=== PATIENT | female | born 1975 | race Two or more races ===

== ENCOUNTER → 2024-07-25 | Outpatient (CLI) | payer MEDICAID, SELFPAY ==
--- NOTE | 2024-07-25 09:15 | XR_ITS ---
Examination: Screening digital mammography, bilateral Computer aided detection 3-D breast Tomosynthesis, bilateral Date and time of exam: July 25, 2024 at 0919 hours Compared to mammograms dating to April 29, 2020 Indication: Screening Technique: Nonmagnified MLO, CC views of the breasts to been obtained, reconstructed from 3-D Tomosynthesis images. R2 computer aided detection program utilized for evaluation of suspicious masses and/or abnormal calcifications. 3-D Tomosynthesis images obtained. Findings: Scattered areas of fibroglandular density Stable scar formation left breast consistent with history left breast cancer 2017 No interval suspicious masses Impression: BI-RADS category II: Benign Findings. Recommend 1 year follow-up mammogram.
== END | disposition home or self-care (01) ==
LOC: CDIM 09:05
PROVIDERS: Referring Provider Internal Medicine Hematology & Oncology; Visit Provider Internal Medicine Hematology & Oncology
DX: Z12.31 Encounter for screening mammogram for malignant neoplasm of breast (principal); R92.323 Mammographic fibroglandular density, bilateral breasts; C50.412 Malignant neoplasm of upper-outer quadrant of left female breast
CPT/HCPCS: 77063; 77067

== ENCOUNTER 2024-08-07 14:20 | Emergency (ER) | payer MEDICAID, SELFPAY ==
[2024-08-07 14:38] VITALS: BP 120/69; PULSE 95; RESP 16; TEMP 36.9; O2SAT 97; BMI 41.5
--- NOTE | 2024-08-07 14:40 | XR_ITS ---
Examination: Abdomen sonogram, Limited Date and time of exam: August 07, 2024 1507 hours INDICATIONS: Jaundice and elevated liver function tests on laboratory examination beginning 3 weeks ago Technique: Real-time saez scale transabdominal sonographic images of the upper abdomen obtained. Findings: Absent gallbladder Common bile duct 0.5 cm no definite stones Pancreatic head 3.4 cm with findings suspicious for free fluid Liver 17.8 cm lobular contour fatty infiltration Hepatopedal portal venous flow is noted as well as patent IVC IMPRESSION: Absent gallbladder No definite common bile duct stones, given the patient's presentation, consider MRCP follow-up
--- NOTE | 2024-08-07 14:40 | XR_ITS ---
Examination: CT abdomen and pelvis without contrast. Coronal 3-D reconstructions. Sagittal 2-D reconstructions. Date and time of exam:August 07, 2024 1447 hours INDICATIONS: Onset jaundice today CTDI: vol (mGy): 10.9 DLP: (mGycm): 589 Technique: Axial images of the abdomen have been obtained, 3 mm slice thickness Intravenous contrast material has not been administered. Low dose protocols were performed. One or more of the following dose reduction techniques were used; automated exposure control, adjustment of the mA and/or KV according to patient size, use of iterative reconstruction technique. Findings: Hepatomegaly 18 cm with diffuse fatty infiltration throughout the liver No intrahepatic biliary tract dilatation Splenomegaly 14.7 cm Absent gallbladder No extra hepatic biliary tract dilatation No pancreatic mass No renal or ureteral calculi, no hydronephrosis Aorta normal size Anasarca No bowel obstruction Normal appendix Mild ascites Colonic diverticulosis No pelvic mass Prominent osteopenia Urinary bladder intact IMPRESSION: Significant hepatomegaly with diffuse severe fatty infiltration throughout the liver No focal liver lesions, no intrahepatic biliary tract dilatation Significant splenomegaly No extrahepatic biliary tract dilatation Mild ascites Anasarca
--- NOTE | 2024-08-07 14:41 | PD.EDRME ---
Rapid Medical Screening Exam RME Arrival date/time: 08/07/24 14:20 48-year-old female presents emergency department complaints of yellowing of the eyes and generalized fatigue Chief Complaint: Recheck/Abnormal Lab/Rx
[2024-08-07 15:15] LABS: Basophils # (Auto) 0.1 Thou/mm3 (0.0-0.2); Basophils % (Auto) 1 % (0-2.5); Eosinophils # (Auto) 0.2 Thou/mm3 (0.0-0.5); Eosinophils % (Auto) 2 % (0-10); Hematocrit 34.6 % (36.0-46.0); Hemoglobin 11.8 g/dL (12.0-16.0); Immature Granulocytes % (Auto) 1 % (0-0); Immature Granulocytes Auto 0.06 Thou/mm3 (0.00-0.00); Lymphocytes # (Auto) 1.4 Thou/mm3 (1.0-4.8); Lymphocytes % (Auto) 12 % (10-50); Mean Corpuscular HGB Conc 34.1 g/dl (31.0-37.0); Mean Corpuscular Hemoglobin 33.8 pg (25.0-35.0); Mean Corpuscular Volume 99 fL (80-100); Monocytes # (Auto) 1.1 Thou/mm3 (0.0-0.8); Monocytes % (Auto) 9 % (0-12); Neutrophils # (Auto) 9.3 Thou/mm3 (1.8-7.7); Neutrophils % (Auto) 77 % (37-80); Nucleated Red Blood Cell % 0 /100 WBC (0); Platelet Count 121 Thou/mm3 (140-440); RDW Standard Deviation 56.5 fL (36.4-46.3); Red Blood Count 3.49 Miln/mm3 (4.00-5.20); White Blood Count 12.1 Thou/mm3 (3.6-11.0)
[2024-08-07 15:30] LABS: INR 1.4 (0.9-1.3); Partial Thromboplastin Time 33.9 Seconds (22.0-36.0); Prothrombin Time 15.1 Seconds (9.0-12.2)
[2024-08-07 15:34] LABS: Ammonia 20 uMol/L (11-32)
[2024-08-07 16:02] LABS: Alanine Aminotransferase 69 U/L (10-49); Albumin, Serum 3.9 gm/dL (3.5-5.0); Albumin/Globulin Ratio 1.3 (1.2-2.2); Alkaline Phosphatase 232 U/L (46-116); Anion Gap 9 (7-16); Aspartate Amino Transferase 115 U/L (0-34); BUN/Creatinine Ratio 20 Ratio (12-20); Blood Urea Nitrogen 10 mg/dL (9-23); Calcium 9.6 mg/dL (8.3-10.6); Calcium (Corrected) 9.7 mg/dL (8.5-10.1); Carbon Dioxide 25.4 mMol/L (20.0-31.0); Chloride 102 mMol/L (98-107); Creatinine (Component) 0.5 mg/dL (0.6-1.3); Estimated Creatinine Clearance 123.2 mL/min (>60); Globulin 3.1 gm/dL (2.3-3.5); Glucose 110 mg/dL (74-106); Lipase 25 U/L (12-53); Osmolality,Calculated 271 (275-295); Potassium 3.1 mMol/L (3.4-5.1); Sodium 136 mMol/L (136-145); eGFR > 60 See Note
[2024-08-07 16:04] LABS: Bilirubin,Total 18.2 mg/dL (0.3-1.2)
[2024-08-07 16:23] LABS: Hepatitis A Antibody IgM Non Reactive (Non React); Hepatitis B Core Antibody IgM Non Reactive (Non React); Hepatitis B Surface Antigen Non Reactive (Non React); Hepatitis C Antibody Non Reactive (Non React)
[2024-08-07 18:51] VITALS: BP 119/65; PULSE 86; RESP 16; O2SAT 99
[2024-08-07 18:54] LABS: Collection Type, Urine Clean Catch
[2024-08-07 19:12] LABS: Bilirubin,Urine 4+ (Negative); Blood,Urine 1+ (Negative); Clarity,Urine Turbid (Clear/Hazy); Color,Urine Drk-Orange (Lt Yel-Yel); Culture Indicated,Urine Contaminated; Glucose, Urine Negative (Negative); Ketones,Urine Negative (Negative); Leukocyte Esterase,Urine Positive (Negative); Nitrite,Urine Negative (Negative); Protein,Urine 1+ (Neg - Trace); RBC,Urine 15 /hpf (0-3); Specific Gravity,Urine 1.027 (1.001-1.035); Squamous Epithelial Cell,Urine 49 /hpf (0-5); Urobilinogen,Urine OVER mg/dL (0.0-1.0); WBC,Urine 19 /hpf (0-5)
--- NOTE | 2024-08-07 20:01 | EDNOTE_ITS ---
ED Recheck Abnl Lab Rx-RME/HPI General Chief Complaint: Recheck/Abnormal Lab/Rx Stated Complaint: JAUNDICE; PCP SENT FOR ABNORMAL LABS; WEAK, BLURRY Time Seen by Provider: 08/07/24 15:16 Source: patient Arrival date/time: 08/07/24 14:20 Mode of arrival: ambulatory Limitations: no limitations RME / HPI RME / HPI narrative: 08/07/24 14:20 48-year-old female presents emergency department complaints of yellowing of the eyes and generalized fatigue Dr. [facility] Main ED Evaluation: 48-year-old female with history of chronic alcohol use who presents to the emergency department sent by her PCP due to presentation of jaundice. Patient states she had seen her provider on 07/24/24 and she had ordered labs. Today, she received a phone call to obtain diagnostic imaging for an ultrasound when she was redirected here for further evaluation. She reports abdominal distention but no pain. Denies any other medical complaints. Patient gives history she started drinking in 2006. She admits to drinking 18-24 pk daily until 2 years ago when she started consuming 3 margaritas about 4x/week to help her sleep. She reports she had her last alcoholic beverage on 07/29/24. Related Data Previous Rx's ?Medication ?Instructions ?Recorded hydrocodone 10 mg-acetaminophen 1 tab PO Q6H PRN pain #20 tabs 01/12/20 325 mg tablet ([place]) famotidine 40 mg tablet (Pepcid) 40 mg PO BID #14 tabs 09/20/23 Allergies Allergy/AdvReac Type Severity Reaction Status Date / Time No Known Allergies Allergy Verified 08/07/24 14:23 Review of Systems Review of Systems Systems Reviewed: All systems reviewed, normal except as documented Past Medical History Past Medical History NEUROLOGIC: Negative Neurological Disorders or Seizures CARDIAC: Negative Cardiac Disorders, Congestive Heart Failure, Edema, Cellulitis or Varicose Veins RESPIRATORY: Negative Chronic Obstructive Pulmonary Disease (COPD), Pneumonia, Tuberculosis or Sleep Apnea GASTROINTESTINAL: Positive Gastrointestinal Disorders and Obesity; Negative Hepatitis or Gall Bladder Disease GENITOURINARY: Negative Genitourinary Disorders or Renal Disease REPRODUCTIVE: Positive Breast Cancer and Previous Pregnancies MUSCULOSKELETAL: Negative Musculoskeletal Disorders ENDOCRINE: Negative Endocrine Disorders, Diabetes Mellitus Type 1 or Diabetes Mellitus Type 2 HEMATOLOGIC: Positive Blood Disorders; Negative Clotting Problems OTHER HISTORY: Positive Chemotherapy, Radiation Therapy, Chicken Pox, Cancer and Breast Cancer; Negative Hospitalization, Autoimmune Disease, Shingles, Falls, Blood Transfusions, Anesthesia Reactions, MRSA, Measles or Mumps Family History FAMILY HISTORY: Positive Family Psychiatric Problems, Family Cardiac Disorders and Family Surgery; Negative Family Respiratory Disorders, Family Gastrointestinal Problems, Family Cancer or Family Anesthesia Reaction Surgical History SURGICAL: Positive Lumpectomy, Hysterectomy, Tubal Ligation and Section; Negative Cardiac Surgery, Pacemaker, Endocrine Surgery, Ear Surgery or Joint Replacement Social History SMOKING STATUS: Never smoker ED Exam Narrative Physical exam: GENERAL APPEARANCE: alert and oriented x 4, well-developed, well-nourished, no acute distress, jaundiced VITALS: All vitals were reviewed and the pulse ox is 99% on room air, which is normal according to my interpretation. HEENT: Normocephalic, atraumatic; pupils equal, round, reactive to light; EOMI; very scleral icterus; mucous membranes pink, moist; oropharynx clear NECK: Supple LUNGS: CTABL; no wheezes, no rales, no rhonchi HEART: Regular rate, regular rhythm; normal S1, S2; no murmurs ABDOMEN: non distended; normal BS; soft, positive abdominal distention, no tenderness, no guarding, no rebound; no masses, no organomegaly, no hernia BACK: no CVA tenderness EXTREMITIES: atraumatic; no edema NEUROLOGIC: awake; alert and oriented x4; cranial nerves II-XII grossly intact; no focal sensory or motor deficits PSYCHIATRIC: appropriate mood and affect SKIN: warm, dry, normal color; no rashes General Limitations: Present no limitations Course Course Course Narrative: 0600: Care signed out to Dr. Payan (emergency physician). Past medical, surgical, social and family history reviewed. Vitals and home medications reviewed. Results and treatment plan discussed. They will assume the care of the patient at this time and will follow the patient, pending MRCP. Quality Measures none Orders Category Date Time Status MRI Screening NOW Care 08/08/24 04:[address] abdomen pelvis wo con Stat Exams 08/07/24 14:40 Completed MR MRCP Stat Exams 08/08/24 Ordered US gall bladder Stat Exams 08/07/24 14:40 Completed Alcohol, Blood Medical Stat Lab 08/07/24 15:04 Completed Ammonia Stat Lab 08/07/24 15:04 Completed Bilirubin,Direct Stat Lab 08/07/24 20:56 Completed CBC Stat Lab 08/07/24 15:04 Completed Comprehensive Metabolic Panel Stat Lab 08/07/24 15:04 Completed Hepatitis Acute Panel Stat Lab 08/07/24 15:04 Completed Lipase Stat Lab 08/07/24 15:04 Completed Partial Thromboplastin Time Stat Lab 08/07/24 15:04 Completed Prothrombin Time with INR Stat Lab 08/07/24 15:04 Completed UA, C/S IF [Urinalysis, C/S if Indicated] Stat Lab 08/07/24 18:42 Completed Folic Acid Inj Med 08/07/24 20:03 Discontinued 1 mg IVP X1 ONE Potassium Chloride [K-Dur] Med 08/07/24 20:02 Discontinued 20 meq PO X1 ONE Sodium Chloride 0.9% 1000 ml [Ns] 1,000 ml Med 08/07/24 20:02 Discontinued IV 999 mls/hr Thiamine Inj [Vitamin B-1 Inj] Med 08/07/24 20:03 Discontinued 100 mg IVP X1 ONE cefTRIAXone/D5w 1gm IV premix [Rocephin/D5w 1gm IV Med 08/07/24 20:03 Discontinued premix] 50 ml IV X1 Vital Signs Vital signs: Vital Signs Temperature 98.5 F 08/07/24 14:38 Pulse Rate 95 08/07/24 14:38 Respiratory Rate 16 08/07/24 14:38 Blood Pressure 120/69 08/07/24 14:38 Pulse Oximetry (%) 97 08/07/24 14:38 Oxygen Delivery Method Room Air 08/07/24 14:38 Recheck / Abnormal Lab / Rx MDM Narrative MDM Narrative:: Scribe Attestation: IKrystal am scribing for and in the presence of Dr. Barnes. Provider Notation: Although this document has been carefully reviewed, there may still be some phonetic and other typographical errors. These errors are purely grammatical due to imperfections in the software program and should not be construed in any way to compromise the substance of the patient's medical care during this visit. Patient data External records reviewed:: [facility] previous records Clinical information provided by:: patient Social determinants that could affect healthcare access:: alcohol use Patient has the following chronic illnesses:: chronic alcohol use How is presenting disease/condition affected by chronic disease/condition?: exacerbated by Evaluation data The following diagnostics were reviewed and interpreted by me:: lab results and radiology exam(s) Lab and/or radiology exams considered but not ordered:: None Interpretation Summary: Examination: CT abdomen and pelvis without contrast. Date and time of exam:August 07, 2024 1447 hours INDICATIONS: Onset jaundice today Findings: Hepatomegaly 18 cm with diffuse fatty infiltration throughout the liver No intrahepatic biliary tract dilatation Splenomegaly 14.7 cm Absent gallbladder No extra hepatic biliary tract dilatation No pancreatic mass No renal or ureteral calculi, no hydronephrosis Aorta normal size Anasarca No bowel obstruction Normal appendix Mild ascites Colonic diverticulosis No pelvic mass Prominent osteopenia Urinary bladder intact IMPRESSION: Significant hepatomegaly with diffuse severe fatty infiltration throughout the liver No focal liver lesions, no intrahepatic biliary tract dilatation Significant splenomegaly No extrahepatic biliary tract dilatation Mild ascites Anasarca Dictated By: Simon Avery MD Examination: Abdomen sonogram, Limited Date and time of exam: August 07, 2024 1507 hours INDICATIONS: Jaundice and elevated liver function tests on laboratory examination beginning 3 weeks ago Technique: Real-time saez scale transabdominal sonographic images of the upper abdomen obtained. Findings: Absent gallbladder Common bile duct 0.5 cm no definite stones Pancreatic head 3.4 cm with findings suspicious for free fluid Liver 17.8 cm lobular contour fatty infiltration Hepatopedal portal venous flow is noted as well as patent IVC IMPRESSION: Absent gallbladder No definite common bile duct stones, given the patient's presentation, consider MRCP follow-up Dictated By: Simon Avery MD Medications / Prescriptions Medications or Prescriptions considered but not ordered:: None Medication administrations:: Medication Administration History Discontinued Medications Folic Acid (Folic Acid Inj 1 Mg/0.2 Ml) 1 mg IVP X1 ONE Stop: 08/07/24 20:04 Last Admin: 08/07/24 21:16 Dose: 1 mg Documented By: COLIN Sodium Chloride (Ns) 1,000 mls @ 999 mls/hr IV .Q1H1M ONE Stop: 08/07/24 21:02 Last Infusion: 08/07/24 22:38 Dose: Infused Documented By: Admin: 08/07/24 21:04 Dose: 999 mls/hr Documented By: COLIN Ceftriaxone Sodium/Dextrose (Rocephin/D5w 1gm Iv Premix) 50 mls @ 100 mls/hr IV X1 ONE Stop: 08/07/24 20:32 Last Infusion: 08/07/24 22:38 Dose: Infused Documented By: Admin: 08/07/24 21:04 Dose: 100 mls/hr Documented By: COLIN Potassium Chloride (Potassium Chloride 20 Meq Tabcr) 20 meq PO X1 ONE Stop: 08/07/24 20:03 Last Admin: 08/07/24 21:04 Dose: 20 meq Documented By: EE Thiamine HCl (Thiamine Inj 100 Mg/Ml Vial 2 Ml) 100 mg IVP X1 ONE Stop: 08/07/24 20:04 Last Admin: 08/07/24 21:05 Dose: 100 mg Documented By: COLIN As above, if any Consultations Consultation(s) initiated? (list below): Yes Consultation #1 (Physician, Specialty, Details): Dr. Felix, hospitalist, made aware of the patient?s HPI, PMHx, lab and/or radiology results. Treatment plan was discussed. Requests us to consult with GI to see if MRCP is needed before admitting. Time: 20:00 Consultation #2 (Physician, Specialty, Details): Discussed case with [Dr. Vicente] from [GI] regarding [consultation]. Discussed patients ED course, exam findings, labs, and radiology results. States to get a MRCP before admitting the patient. Time: 22:47 Diagnosis Recheck Differential Diagnosis: other (Liver failure, liver cancer, cirrhosis) Most likely diagnosis given after review of the tests above:: Liver failure secondary to alcohol consumption Admission Indicated Admission indicated?: not indicated Admission Request Was there a request for admission?: No Disposition Plan Disposition Plan: other (specify) (Signed out to Dr. Payan at 0600 pending MRCP.) Discharge Plan Plan Disposition Comment: Stable at sign out. Prescriptions/Referrals Prescriptions/Med Rec: No Action hydrocodone-acetaminophen [[place]] 10-325 mg tablet 1 tab PO Q6H MDD 3 PRN (Reason: pain) Qty: 20 0RF famotidine [Pepcid] 40 mg tablet 40 mg PO BID Qty: 14 0RF Referrals: Elena Aguila PA-C [Primary Care Provider] - In 1 week Problem List Clinical Impression: Liver failure, Hyperbilirubinemia Patient/Caregiver Discharge Instructions Print Language: Citizen Of [place]
--- NOTE | 2024-08-07 20:28 | EVENTNT_ITS ---
Documentation for date of: 08/07/24 Event Note Event Note: Chief Complaints: Referred by PCP for abnormal labs History of Present Illness: The patient is a 48-year-old female with a history of heavy alcohol use presenting with jaundice, weakness, and blurry vision. She reports drinking heavily since 2006, consuming approximately 18 beers daily, five days per week, for over 15 years. She stopped drinking one week ago due to progressive abdomina l bloating and an inability to eat more than three to four bites of food without feeling full. She has also experienced watery diarrhea with stools described as dark red or orange and urine with a similar discoloration. She went to see her PCP in late June and was noted to have jaundice during an evaluation. Initial labs revealed significantly elevated bilirubin levels, prompting her PCP to refer her to the hospital. Despite these findings, she delayed presentation due to family and work obligations. She denies nausea, vomiting, fever, significant pruritus, or abdominal pain. She reports fatigue, decreased energy, and poor appetite. She denies recent chest pain or shortness of breath. In the Emergency Department, vital signs were stable. Initial labs showed elevated total bilirubin (18.2 mg/dL), AST (115 U/L), ALT (69 U/L), and alkaline phosphatase (232 U/L) alongside mild anemia and thrombocytopenia. Imaging studies included an ultrasound and CT of the abdomen, revealing significant hepatomegaly with diffuse severe fatty infiltration, no focal liver lesions, a common bile duct of 0.5 cm without stones, splenomegaly, and findings suspicious for free fluid near the pancreatic head. GI was consulted and requested that an MRCP be performed prior to admission. 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 Assessment and Plan: #Severe alcoholic hepatitis with liver failure: - GI was consulted and requested that an MRCP be performed prior to admission. - Elevated bilirubin and abnormal liver enzymes - Hepatitis panel negative - Maddrey?s Discriminant Function >32 - Initiate treatment for alcohol cessation and withdrawal prevention #Alcohol abuse: - Implement CIWA protocol - Provide nutritional support: Begin supplementation with thiamine, folate, and multivitamins #UTI - Ceftriaxone #Electrolyte abnormalities: - Replace potassium #Thrombocytopenia and mild anemia: - Monitor trends and assess for bleeding risk - SCD #Cancer history and surveillance: - Ensure current oncologic plans for prophylactic mastectomies remain coordinated
[2024-08-07 20:35] LABS: Alcohol, Blood Medical < 3.0 mg/dL (0-10.0)
[2024-08-07] MEDS: cefTRIAXone/D5w 1gm IV premix 50 ML IV (21:04)
[2024-08-07] MEDS: SODIUM CHLORIDE 0.9% 1000 ML 1,000 ML 999 ML IV (21:04)
[2024-08-07] MEDS: POTASSIUM CHLORIDE 20 mEq TABCR PO (21:04)
[2024-08-07] MEDS: THIAMINE INJ 100 MG/ML VIAL 2 ML IVP (21:05)
[2024-08-07 21:12] VITALS: BP 113/63; PULSE 88; RESP 16; O2SAT 99
[2024-08-07] MEDS: FOLIC ACID INJ 1 MG/0.2 ML IVP (21:16)
[2024-08-07 21:23] LABS: Bilirubin,Direct 11.2 mg/dL (0.0-0.3)
[2024-08-07 21:57] VITALS: BP 113/46; PULSE 87; RESP 16; TEMP 36.8; O2SAT 99
--- NOTE | 2024-08-08 | XR_ITS ---
MRI abdomen, without contrast. MRCP Date and time of exam: August 08, 2024 0853 hours INDICATIONS: Abdominal pain and jaundice noticed this week, elevated total bilirubin on laboratory examination 3 weeks ago and today, status post cholecystectomy, common bile duct 0.5 cm on gallbladder sonogram August 07, 2024 Technique: Multiple axial and coronal images of the abdomen have been obtained with the Siemens 1.5T MRI scanner. Images obtained included T1 weighted transverse images, T2-weighted transverse images, T2-weighted transverse images fat-suppressed, T2 weighted haste fat suppressed transverse images, T1 weighted images, in and out of phase images, T2-weighted coronal images, breath hold, T2 weighted haze coronal images as well as T2 weighted coronal thick slab images, MRCP. Findings: Hepatomegaly 18 cm, liver irregular in contour Absent gallbladder Common bile duct common hepatic duct 3 to 4 mm no common hepatic or common bile duct stones Splenomegaly 14 cm No dilated pancreatic duct, no peripancreatic edema No hydronephrosis Aorta normal size Trace ascites Anasarca IMPRESSION: Cirrhosis Hepatosplenomegaly No common hepatic or common bile duct stones Trace ascites Anasarca
[2024-08-08 01:00] VITALS: BP 95/46; PULSE 88; RESP 18; TEMP 37.1; O2SAT 99
[2024-08-08 02:58] VITALS: BP 104/51; PULSE 89; RESP 17; TEMP 36.8; O2SAT 95
[2024-08-08 06:00] VITALS: BP 100/44; PULSE 88; RESP 18; TEMP 37.1; O2SAT 94
[2024-08-08 06:33] VITALS: BP 100/44; PULSE 89; RESP 18; TEMP 37.2; O2SAT 93
--- NOTE | 2024-08-08 07:25 | EDNOTE_ITS ---
Emergency Room Addendum <Kimberly Ruffin - Last Filed: 08/08/24 11:46> Addendum Narrative: At 6 AM on 08/08/2024, the care of the patient was transferred from Dr. Barnes, see his notes for complete H&P and ED course. I reviewed all diagnostic test results: My interpretation of the EKG is My review of the CT abdomen/pelvis is no extrahepatic biliary tract dilatation. My review of the GB ultrasound is absent gallbladder, no definite CBD stones. My review of the MRCP is cirrhosis, hepatosplenomegaly, no common hepatic or common bile duct stones, trace ascites. Blood tests and urine tests At this point, diagnoses include liver failure. Treatment here included Significant improvement Ke Payan MD Discharge Instructions from Dr. Payan printed for you: 1. After extensive evaluation, you have severe liver damage from alcohol. Please stop alcohol at all cost. 2. See a private doctor on 08/11/2024 recheck and further care. Ask to review all test results and official radiology reports, to make sure you receive all necessary follow-ups and monitoring. Ask for help with more care for you, including referral to see liver specialist as soon as possible. 3. Seek immediate medical care with persistent vomiting, abdominal pain, or with any concerns. <Ke Payan MD - Last Filed: 08/19/24 15:01> Addendum Narrative: At 6 AM on 08/08/2024, the care of the patient was transferred from Dr. Barnes, see his notes for complete H&P and ED course. I reviewed all diagnostic test results: My review of the CT abdomen/pelvis report is no extrahepatic biliary tract dilat ation. My review of the GB ultrasound report is absent gallbladder, no definite CBD stones. My review of the MRCP report is cirrhosis, hepatosplenomegaly, no common hepatic or common bile duct stones, trace ascites. Blood tests and urine tests remarkable for K 3.1, T Bili 18.2, D Bili 11.2, AST 115, ALT 69, Alk Phos 232. At this point, diagnoses include liver failure. I discussed the case with Dr. Vicente (GI).? About the presentation and exam and diagnostics and treatments here.? And possible need of further care in the hospital.? Recommended outpatient care. Based on my best medical judgment, made decision no further evaluation or treatment indicated at this time.? Patient understands and agrees to the discharge instructions customized and printed, see below. Discharge Instructions from Dr. Payan printed for you: 1. After extensive evaluation, you have severe liver damage from alcohol. Please stop alcohol at all cost. 2. See a private doctor on 08/11/2024 recheck and further care. Ask to review all test results and official radiology reports, to make sure you receive all necessary follow-ups and monitoring. Ask for help with more care for you, including referral to see liver specialist as soon as possible. 3. Seek immediate medical care with persistent vomiting, abdominal pain, or with any concerns. Ke Payan MD
[2024-08-08] MEDS: POTASSIUM CHLORIDE 10% 20 MEQ/15 ML UDC 40 MEQ PO (07:31)
[2024-08-08 09:00] VITALS: BP 105/65; PULSE 81; RESP 17; TEMP 37.1; O2SAT 97
[2024-08-08 11:52] VITALS: BP 108/51; PULSE 86; RESP 20; TEMP 37; O2SAT 97
== END 2024-08-08 12:00 | disposition home or self-care (01) ==
PROVIDERS: Internal Medicine; Nurse Practitioner Primary Care; Emergency Provider Emergency Medicine; PCP Physician Assistant
DX: K72.90 Hepatic failure, unspecified without coma (principal); F10.90 Alcohol use, unspecified, uncomplicated; K74.60 Unspecified cirrhosis of liver
CPT/HCPCS: 36415; 74176; 76705; 80053; 80074; 80320; 81001; 82140; 82248; 83690; 85025; 85610; 85730; 96365; 96366; 96375; 99284; J0696; J3411; J3490; J7030; S8037; 74181; A9270; G0480

== ENCOUNTER 2024-09-01 12:59 | Outpatient (RCR) | payer MEDICAID, SELFPAY ==
--- NOTE | 2024-09-01 14:07 | CTCFLWUP_ITS ---
Patient: JEAN CARLOS HAYDEN : 1975 Page 2 of 2 FOLLOW UP NOTE DATE OF SERVICE: 09/01/2024 NAME: JEAN CARLOS HADYEN ACCOUNT: [id number] : 1975 AGE: 49 INTERVAL HISTORY: 49-year-old woman is here for follow-up. She is recently diagnosed with end- stage liver disease. As per her she was drinking alcohol to fall asleep at night and has insomnia. She noticed getting jaundiced at the end of June. Her primary care has referred her to watch assembler. She is scheduled to see them in September 17. Patient says her legs have been progressively getting swollen. She takes lactulose. She has quit drinking and last drink was at the time of new year. ONCOLOGY HISTORY: DIAGNOSIS: Malignant neoplasm of upper-outer quadrant of left female breast [ICD10] C50.412 DATE OF DIAGNOSIS: 12/19/2016 left breast cancer status postlumpectomy BRCA positive Prophylactic mastectomy bilateral was never completed STAGE/TNM: T3 N0 M0 TREATMENT HISTORY: Care?Plan Start?Date Cycle Day Intent DOXOrubicin?60,?Cyclophos?600 03/20/2017 1 14 Curative?(primary) DOCEtaxel?75?mg/m*2?-?Breast 05/24/2017 1 21 Curative?(adjuvant) HISTORY OF PRESENT ILLNESS: Jean Carlos Hayden is a 49-year-old female with following history. 12/08/2016: Patient had bilateral screening digital mammography which showed a 4.5 cm dominant mass lesion with irregular margins and suspicious microcalcifications in the left breast. 12/19/2016: CT scan of the chest reportedly revealed 4.5 cm necrotic left breast mass contiguous with the chest wall. No mediastinal adenopathy or axillary adenopathy was noted. 12/20/2016: Patient had a stereotactic core biopsy of the left breast mass which revealed ER negative KS negative HER- 2/dinah negative poorly differentiated invasive ductal carcinoma. 01/29/2017: Patient had left breast partial mastectomy with axillary dissection. Surgical pathology specimen showed a 5.2 x 4.5 x 3 cm single focus high-grade invasive ductal carcinoma. The invasive carcinoma is located 0.4 cm away from the skeletal muscle. Invasive carcinoma does not involve skeletal muscle or skin. No lymphovascular invasion was identified. It was staged as a pT3 N0 disease. 03/20/2017?07/26/2017: Patient received 4 cycles of dose dense before meals and 4 cycles of Taxotere. 08/23/2017?10/17/2017: Patient received 6300 cGy radiation to the left breast. 05/23/2018: She is positive for BRCA1 mutation. 09/03/2018: Patient had pelvic ultrasound which showed a 1.2 x 1 cm hypoechoic nonvascular structure in the left lateral uterus. 09/03/2018: Transabdominal ultrasound showed small uterine area of probable fibroid degeneration measuring 12 mm. No adnexal mass noted. 05/06/2019: Patient had subtotal abdominal hysterectomy and bilateral salpingo-oophorectomy. 04/29/2020: Bilateral screening digital mammograms showed BI-RADS Category 2: Benign findings. 07/02/2020: PET CT scan? 08/05/2020: Bone scan? 07/18/2021: Left breast ultrasound? 07/26/2023: Low-dose CT scan of the chest with without contrast as lung cancer screening test. 08/27/2023: Ultrasound of the mass in the upper back confirmed marginated oval soft tissue mass in the posterior midline upper back measuring 3.3 x 1.7 x 2.7 cm in size. Biopsy done on 10/25/2023 showed material consistent with sebaceous cyst. 02/28/2024: Ms. Hayden was seen at [facility] genetic counseling department. Currently she is waiting for bilateral prophylactic mastectomies. OTHER MEDICAL HISTORY/CONDITIONS: FAMILY HISTORY: SOCIAL HISTORY: DRAWING IN HAND HISTORY: MEDICATIONS: 1. Lasix - 1 tab Twice a Day 2. prednisolone - 1 tab Twice a Day Medications Last Reconciled by Jean Carlos Neal MA on 09/01/2024 ALLERGIES: No Known Drug Allergies REVIEW OF SYSTEMS: A complete 14-point review of systems was performed and is negative except as noted in interval history. PHYSICAL EXAMINATION: VITAL SIGNS: B/P?109/69, Oxygen?Saturation?97% Weight?194?lbs PAIN: 0 - No pain ECOG Performance Status: 2 - Symptomatic; ambulatory; capable of self-care; >50% of waking hrs. not in bed GENERAL APPEARANCE: Jaundiced HEENT: Normocephalic, no temporal wasting, icterus present CARDIOVASCULAR: Not assessed. PULMONARY: Normal respiratory effort, no respiratory distress or use of accessory muscles, speaking in full sentences, no tachypnea. EXTREMITIES: Edema extending to the abdomen SKIN: Normal skin appearance. NEUROLOGIC: Alert and oriented x4. PSHYCHIATRIC: Appropriate affect, mood normal, behavior normal, intact thought and speech. 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 No clinical evidence of recurrence. BRCA1 positive. Previously Ms. Hayden was referred to breast surgeon in [place] for bilateral mastectomies. Unfortunately she did not have the surgery done yet. The patient was recently seen by genetic counseling department at [facility]. Currently she is being considered for bilateral prophylactic mastectomies.. Biopsy of the mass from the upper back showed material consistent with sebaceous cyst. Screening CT scan of the chest (07/26/2023) is negative for lung lesions. However it did show a soft tissue mass in the posterior upper back as documented above. Has been smoking cigarettes for more than 30 years status post subtotal abdominal hysterectomy and bilateral salpingo-oophorectomy. 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 Advised not to drink alcohol Further management as per watch assembler Referral requested Ordered labs Advised to be compliant with the lactulose and other drugs given to her by her primary and watch assembler Avoid alcohol and Tylenol CBC CMP alpha-fetoprotein MRI liver RETURN TO CLINIC: 3 to 4 weeks or as needed BILLING AND COMPLIANCE: I reviewed external records from providers outside my specialty as summarized above. I spent a total of 50 minutes on this patient?s care on the day of their visit excluding time spent related to any billed procedures. This time includes time spent with the patient as well as time spent documenting in the medical record, reviewing patients records and tests, obtaining history, placing orders, communicating with other healthcare professionals, counseling the patient, family or caregiver, and/or care coordination for the diagnoses above. Electronically Signed by: Jose Hawkisn MD T: 2:05 PM CC: Andrés?Kip?, Aj?Anurag? PCP: Elena Aguila Referring: Elena Aguila This document was completed utilizing speech recognition software. Grammatical errors, random word insertions, pronoun errors, and incomplete sentences are an occasional consequence of this system due to software limitations, ambient noise, and hardware issues. Any formal questions or concerns about the content, text or information contained within the body of this dictation should be directly addressed to the provider for clarification.
== END 2024-09-26 23:59 | disposition home or self-care (01) ==
LOC: SCTC 12:59
PROVIDERS: PCP Physician Assistant; Referring Provider Physician Assistant; Visit Provider Internal Medicine Hematology & Oncology
DX: K72.10 Chronic hepatic failure without coma (principal); K70.30 Alcoholic cirrhosis of liver without ascites; R22.2 Localized swelling, mass and lump, trunk; F17.210 Nicotine dependence, cigarettes, uncomplicated; Z90.710 Acquired absence of both cervix and uterus; Z90.722 Acquired absence of ovaries, bilateral; Z85.3 Personal history of malignant neoplasm of breast
CPT/HCPCS: 99212; G0463

== ENCOUNTER → 2024-10-30 | Outpatient (CLI) | payer MEDICAID, SELFPAY ==
--- NOTE | 2024-10-30 | XR_ITS ---
Examination: Ultrasound-guided needle placement right basilic vein 5 Albanian catheter placement in the right basilic vein INDICATIONS: No IV access for MRI with contrast study today Date and Time: October 30, 2024 1145 hours Technique: Informed consent provided. Timeout performed. Skin prepped over the right arm and sterile drape applied. Maximum sterile barrier technique utilized, hand hygiene, sterile ultrasound technique 1% lidocaine administered for local anesthesia. Ultrasound utilized to confirm patency of the right basilic vein Utilizing ultrasonographic guidance successful 21-gauge needle puncture into the right basilic vein. Ultrasound images recorded and stored. 0.18 wire guide introduced through the needle into the right basilic vein followed by 5 Albanian catheter for IV access for the MRI study to follow Central line placement Estimated blood loss 0 cc The patient tolerated the procedure well, in satisfactory and stable condition a completion of the procedure Impression: Successful ultrasound-guided needle placement right basilic vein Successful placement 5 Albanian catheter in the basilic vein for MRI with contrast study to follow Fluoroscopy 0.1 minute radiation dose 0.10 milligray 1 spot fluoroscopic film
--- NOTE | 2024-10-30 08:50 | XR_ITS ---
Examination: MRI abdomen with intravenous contrast. MRI abdomen without intravenous contrast. Date and time of exam: October 30, 2024 1654 hours Comparison MRCP August 08, 2024, hepatobiliary sonography August 07, 2024, CT abdomen pelvis August 07, 2024 INDICATIONS: Diagnosis malignant neoplasm upper outer quadrant left female breast, jaundice 5 months, cirrhosis on MR CP August 08, 2024 Technique: Multiple axial, sagittal and coronal sections of the abdomen obtained. Transverse images, TR 6020, TE 107. T1 weighted transverse images, TR 582, TE 9.5. T2-weighted sagittal images, TR 4000, TE 105. T2-weighted sagittal images, TR 4000, TE 5. Coronal images, TR 4210, TE 107. Axial and coronal images are obtained post 19 cc intravenous injection, gadolinium. Findings: Liver sagittal dimension 15 cm, liver is irregular in contour Splenomegaly 15 cm Mild ascites, including fluid subcapsular to the liver measuring 19 mm Precontrast images demonstrate no focal liver lesions Absent gallbladder Normal size common hepatic common bile duct No pancreatic mass Normal adrenal glands No hydronephrosis Aorta normal size No abdominal lymphadenopathy Postcontrast images demonstrate no abnormal enhancing liver or splenic lesions Portosystemic collateral vessels medial to the spleen Dilated inferior vena cava IMPRESSION: Cirrhosis Splenomegaly Mild ascites No focal liver lesions No extrahepatic biliary tract dilatation No abdominal lymphadenopathy
== END | disposition home or self-care (01) ==
PROVIDERS: PCP Physician Assistant; Referring Provider Internal Medicine Hematology & Oncology; Visit Provider Internal Medicine Hematology & Oncology
DX: C50.412 Malignant neoplasm of upper-outer quadrant of left female breast (principal); R16.1 Splenomegaly, not elsewhere classified; K70.31 Alcoholic cirrhosis of liver with ascites
CPT/HCPCS: 36558; 74183; 76937; 77002; A4649; A9579; C1894

== ENCOUNTER 2024-11-17 18:36 | Emergency (ER) | payer MEDICAID, SELFPAY ==
[2024-11-17 20:10] VITALS: BP 105/64; PULSE 83; RESP 18; TEMP 37.1; O2SAT 98
--- NOTE | 2024-11-17 20:41 | XR_ITS ---
Examination: PA lateral chest 2 views Technique: Upright PA lateral chest 2 views Exam date and time: November 18, 2019 0501 hrs. Indications: Shortness of breath 11/17/2024 Findings: Mild enlargement cardiac contour Moderate vascular congestion Suspicious for early septal edema at the lung bases Subsegmental atelectasis right base Impression: Suspicious for early heart failure
--- NOTE | 2024-11-17 20:43 | PD.EDRME ---
Rapid Medical Screening Exam RME Arrival date/time: 11/17/24 18:36 Chief Complaint: General Adult/Misc Complain Time Seen by Provider: 11/17/24 19:22 Vital signs: Vital Signs Temperature 98.7 F 11/17/24 20:10 Pulse Rate 83 11/17/24 20:10 Respiratory Rate 18 11/17/24 20:10 Blood Pressure 105/64 11/17/24 20:10 Pulse Oximetry (%) 98 11/17/24 20:10 Oxygen Delivery Method Room Air 11/17/24 20:10 Vital signs reviewed by provider: Yes RME Narrative: 49-year-old female presents to the ED with complaint of lower extremity and abdominal edema, occasional shortness of breath, constipation and difficulty with urination. She states she was recently diagnosed with cirrhosis of the liver and is currently awaiting an appointment with a specialist. She is currently taking Lasix and spironolactone. Labs, urinalysis, chest x-ray ordered. I have greeted and performed a focused initial assessment of this patient. A comprehensive ED assessment and evaluation of the patient, analysis of all test results, and completion of the medical decision making process will be conducted by additional ED providers.
[2024-11-17 21:06] LABS: Basophils % (Auto) 0 % (0-2.5); Eosinophils # (Auto) 0.3 Thou/mm3 (0.0-0.5); Eosinophils % (Auto) 3 % (0-10); Hematocrit 27.5 % (36.0-46.0); Hemoglobin 9.4 g/dL (12.0-16.0); Immature Granulocytes % (Auto) 1 % (0-0); Immature Granulocytes Auto 0.05 Thou/mm3 (0.00-0.00); Lymphocytes # (Auto) 1.8 Thou/mm3 (1.0-4.8); Lymphocytes % (Auto) 19 % (10-50); Mean Corpuscular HGB Conc 34.2 g/dl (31.0-37.0); Mean Corpuscular Hemoglobin 33.5 pg (25.0-35.0); Mean Corpuscular Volume 98 fL (80-100); Monocytes % (Auto) 11 % (0-12); Neutrophils # (Auto) 6.2 Thou/mm3 (1.8-7.7); Neutrophils % (Auto) 66 % (37-80); Nucleated Red Blood Cell % 0 /100 WBC (0); Platelet Count 104 Thou/mm3 (140-440); RDW Standard Deviation 52.2 fL (36.4-46.3); Red Blood Count 2.81 Miln/mm3 (4.00-5.20); White Blood Count 9.5 Thou/mm3 (3.6-11.0)
[2024-11-17 21:25] LABS: B-Type Natriuretic Peptide 91 pg/mL (0-100)
[2024-11-17 21:27] LABS: Alanine Aminotransferase 19 U/L (10-49); Albumin, Serum 3.2 gm/dL (3.5-5.0); Albumin/Globulin Ratio 1.1 (1.2-2.2); Alkaline Phosphatase 166 U/L (46-116); Anion Gap 6 (7-16); Aspartate Amino Transferase 41 U/L (0-34); BUN/Creatinine Ratio 18 Ratio (12-20); Bilirubin,Total 6.6 mg/dL (0.3-1.2); Blood Urea Nitrogen 9 mg/dL (9-23); Calcium 9.3 mg/dL (8.3-10.6); Calcium (Corrected) 9.9 mg/dL (8.5-10.1); Carbon Dioxide 25.9 mMol/L (20.0-31.0); Chloride 108 mMol/L (98-107); Creatinine (Component) 0.5 mg/dL (0.6-1.3); Globulin 2.8 gm/dL (2.3-3.5); Glucose 101 mg/dL (74-106); Osmolality,Calculated 278 (275-295); Sodium 140 mMol/L (136-145); eGFR > 60 See Note
--- NOTE | 2024-11-17 23:45 | PD.EDADULT ---
ED General RME/HPI General Chief complaint: General Adult/Misc Complain Stated complaint: CONSTIPATED,LEGS SWOLLEN, WATER PILLS NOT WORKING Time Seen by Provider: 11/17/24 19:22 Arrival date/time: 11/17/24 18:36 RME / HPI RME / HPI narrative: 49-year-old female presents to the ED with complaint of lower extremity and abdominal edema, occasional shortness of breath, constipation and difficulty with urination. She states she was recently diagnosed with cirrhosis of the liver and is currently awaiting an appointment with a specialist. She is currently taking Lasix and spironolactone. Related Data Previous Rx's ?Medication ?Instructions ?Recorded hydrocodone 10 mg-acetaminophen 1 tab PO Q6H PRN pain #20 tabs 01/12/20 325 mg tablet (Harvest) famotidine 40 mg tablet (Pepcid) 40 mg PO BID #14 tabs 09/20/23 Allergies Allergy/AdvReac Type Severity Reaction Status Date / Time No Known Allergies Allergy Verified 11/17/24 18:39 Review of Systems Review of Systems Systems Reviewed: All systems reviewed, normal except as documented Past Medical History Past Medical History NEUROLOGIC: Negative Neurological Disorders or Seizures CARDIAC: Negative Cardiac Disorders, Congestive Heart Failure, Edema, Cellulitis or Varicose Veins RESPIRATORY: Negative Chronic Obstructive Pulmonary Disease (COPD), Pneumonia, Tuberculosis or Sleep Apnea GASTROINTESTINAL: Positive Gastrointestinal Disorders and Obesity; Negative Hepatitis or Gall Bladder Disease GENITOURINARY: Negative Genitourinary Disorders or Renal Disease REPRODUCTIVE: Positive Breast Cancer and Previous Pregnancies MUSCULOSKELETAL: Negative Musculoskeletal Disorders ENDOCRINE: Negative Endocrine Disorders, Diabetes Mellitus Type 1 or Diabetes Mellitus Type 2 HEMATOLOGIC: Positive Blood Disorders; Negative Clotting Problems OTHER HISTORY: Positive Chemotherapy, Radiation Therapy, Chicken Pox, Cancer and Breast Cancer; Negative Hospitalization, Autoimmune Disease, Shingles, Falls, Blood Transfusions, Anesthesia Reactions, MRSA, Measles or Mumps Family History FAMILY HISTORY: Positive Family Psychiatric Problems, Family Cardiac Disorders and Family Surgery; Negative Family Respiratory Disorders, Family Gastrointestinal Problems, Family Cancer or Family Anesthesia Reaction Surgical History SURGICAL: Positive Lumpectomy, Hysterectomy, Tubal Ligation and Section; Negative Cardiac Surgery, Pacemaker, Endocrine Surgery, Ear Surgery or Joint Replacement Social History SMOKING STATUS: Current some day smoker ED Exam Narrative Physical exam: Alert and oriented, afebrile and nontoxic-appearing, 49-year-old female, lung are clear, no respiratory distress noted, regular rate and rhythm. Abdomen is soft, nontender, distended. Bilateral lower extremities revealed 2+ pitting edema with no calf tenderness. Course Course Course Narrative: CBC reveals a normal white count of 9.5, low H&H of 9.4/27.5 with low platelets of 104. Chemistry panel reveals normal sodium and potassium, minimally elevated chloride of 108, normal CO2 and gap, BUN and creatinine are normal AST is mildly elevated at 41 and ALT is normal at 19. Alk phos elevated at 166, BNP normal at 91, albumin low at 3.2. XR chest: Impression: Suspicious for early heart failure Quality Measures none Orders Category Date Time Status XR chest 2V Stat Exams 11/17/24 20:41 Completed BNP [B-Type Natriuretic Peptide] Stat Lab 11/17/24 20:48 Completed CBC Stat Lab 11/17/24 20:48 Completed CMP [Comprehensive Metabolic Panel] Stat Lab 11/17/24 20:48 Completed Urinalysis Stat Lab 11/18/24 00:07 Completed Urine Culture Stat Lab 11/18/24 00:07 Completed Vital Signs Vital signs: Vital Signs Temperature 98.7 F 11/17/24 20:10 Pulse Rate 83 11/17/24 20:10 Respiratory Rate 18 11/17/24 20:10 Blood Pressure 105/64 11/17/24 20:10 Pulse Oximetry (%) 98 11/17/24 20:10 Oxygen Delivery Method Room Air 11/17/24 20:10 Discharge Plan Plan Patient Disposition: HOME (Self Care) Discharge Disposition comment: Stable Prescriptions/Referrals Prescriptions/Med Rec: No Action hydrocodone-acetaminophen [Harvest] 10-325 mg tablet 1 tab PO Q6H MDD 3 PRN (Reason: pain) Qty: 20 0RF famotidine [Pepcid] 40 mg tablet 40 mg PO BID Qty: 14 0RF Referrals: Marlene Chacko NP [Primary Care Provider] - In 1 week Problem List Clinical Impression: Cirrhosis of liver, Edema due to hypoalbuminemia Patient/Caregiver Discharge Instructions Education Materials: Understanding Cirrhosis, ED Cirrhosis Additional Instructions: Follow-up with your primary care physician in 24 to 48 hours. Return to the ED for any new or worsening symptoms. Print Language: Filipino Stand Alone Forms: [employer] Award Info., Patient Portal Info Letter PA/MEDICAL CHIEF TECHNICIAN Supervising Physician PA/MEDICAL CHIEF TECHNICIAN Supervising Physician: Dr. Barnes [facility] Narrative [facility] hospital course: 49-year-old female presents to the ED with complaint of lower extremity and abdominal edema, occasional shortness of breath, constipation and difficulty with urination. She states she was recently diagnosed with cirrhosis of the liver and is currently awaiting an appointment with a specialist. She is currently taking Lasix and spironolactone. Alert and oriented, afebrile and nontoxic-appearing, 49-year-old female, lung are clear, no respiratory distress noted, regular rate and rhythm. Abdomen is soft, nontender, distended. Bilateral lower extremities revealed 2+ pitting edema with no calf tenderness. CBC reveals a normal white count of 9.5, low H&H of 9.4/27.5 with low platelets of 104. Chemistry panel reveals normal sodium and potassium, minimally elevated chloride of 108, normal CO2 and gap, BUN and creatinine are normal AST is mildly elevated at 41 and ALT is normal at 19. Alk phos elevated at 166, BNP normal at 91, albumin low at 3.2. XR chest: Impression: Suspicious for early heart failure Clinical Information Provided by patient Medical Records Reviewed [facility] Meds/Rx Considered, not Ordered None Labs/Rad/Tests considered, not Ordered None Chronic Illness/Social Conditions which may negatively complicate care or outcome(s)-explain: Liver disease and Cancer EKG EKG not done Lab Interpretation Labs: see narrative above Imaging Imaging interpretation: see narrative above Medication Administration(s) none Diagnosis Differential diagnosis: CHF, ascites, cirrhosis, peripheral edema, anasarca Most likely dx, and/or detailed dx discussion: Cirrhosis and edema secondary to hypoalbuminemia. Dispositon Disposition: Discharge Home
[2024-11-18 00:26] LABS: Collection Type, Urine Clean Catch
[2024-11-18 01:10] LABS: Bacteria,Urine 1+; Bilirubin,Urine 1+ (Negative); Blood,Urine Negative (Negative); Calcium Oxalate Crystals,Urine 3+; Clarity,Urine Turbid (Clear/Hazy); Color,Urine Drk-Yellow (Lt Yel-Yel); Glucose, Urine Negative (Negative); Ketones,Urine Negative (Negative); Leukocyte Esterase,Urine Positive (Negative); Nitrite,Urine Positive (Negative); Protein,Urine 1+ (Neg - Trace); RBC,Urine 14 /hpf (0-3); Specific Gravity,Urine 1.023 (1.001-1.035); Squamous Epithelial Cell,Urine 35 /hpf (0-5); Urobilinogen,Urine Negative mg/dL (0.0-1.0); WBC,Urine 176 /hpf (0-5)
[2024-11-18 01:35] VITALS: BP 116/72; PULSE 87; RESP 16; O2SAT 99
== END 2024-11-18 01:36 | disposition home or self-care (01) ==
PROVIDERS: Physician Assistant; Emergency Provider Emergency Medicine; PCP Nurse Practitioner Family
DX: K74.60 Unspecified cirrhosis of liver (principal); E88.09 Other disorders of plasma-protein metabolism, not elsewhere classified; R60.0 Localized edema; R06.02 Shortness of breath
CPT/HCPCS: 36415; 71046; 80053; 81001; 83880; 85025; 87077; 87086; 87186; 99283

== ENCOUNTER 2025-02-24 11:01 | Outpatient (RCR) | payer MEDICAID, SELFPAY | END 2025-02-26 23:59 | disposition home or self-care (01) | LOC: SCTC 11:01 | PROVIDERS: PCP Physician Assistant; Referring Provider Physician Assistant; Visit Provider Nurse Practitioner Family | DX: C50.412 Malignant neoplasm of upper-outer quadrant of left female breast (principal); Z17.421 Hormone receptor negative with human epidermal growth factor receptor 2 negative status; K70.30 Alcoholic cirrhosis of liver without ascites; R16.1 Splenomegaly, not elsewhere classified; D69.6 Thrombocytopenia, unspecified; D64.9 Anemia, unspecified; Z15.01 Genetic susceptibility to malignant neoplasm of breast; R60.9 Edema, unspecified; F17.210 Nicotine dependence, cigarettes, uncomplicated; Z71.6 Tobacco abuse counseling | CPT/HCPCS: 99212; G0463 ==

== ENCOUNTER → 2025-03-25 | Outpatient (CLI) | payer MEDICAID, SELFPAY | END | disposition home or self-care (01) | PROVIDERS: PCP Physician Assistant; Referring Provider Physician Assistant; Visit Provider Student in an Organized Health Care Education/Training Program | DX: L97.812 Non-pressure chronic ulcer of other part of right lower leg with fat layer exposed (principal); I95.9 Hypotension, unspecified; F17.200 Nicotine dependence, unspecified, uncomplicated; K70.31 Alcoholic cirrhosis of liver with ascites; D64.9 Anemia, unspecified; Z85.3 Personal history of malignant neoplasm of breast | CPT/HCPCS: 97597; 97598 ×4; 99212; A9270; G0463 ==

== ENCOUNTER → 2025-04-01 | Outpatient (CLI) | payer MEDICAID, SELFPAY | END | disposition home or self-care (01) | LOC: SWHD 13:57 | PROVIDERS: PCP Physician Assistant; Referring Provider Physician Assistant; Visit Provider Student in an Organized Health Care Education/Training Program | DX: L97.812 Non-pressure chronic ulcer of other part of right lower leg with fat layer exposed (principal); I95.9 Hypotension, unspecified; F17.200 Nicotine dependence, unspecified, uncomplicated; K70.31 Alcoholic cirrhosis of liver with ascites; D64.9 Anemia, unspecified; Z85.3 Personal history of malignant neoplasm of breast | CPT/HCPCS: 11042; 11045 ×3; A9270 ==

== ENCOUNTER → 2025-04-07 | Outpatient (CLI) | payer MEDICAID, SELFPAY | END | disposition home or self-care (01) | LOC: SWHD 12:37 | PROVIDERS: PCP Physician Assistant; Referring Provider Physician Assistant; Visit Provider Student in an Organized Health Care Education/Training Program | DX: L97.812 Non-pressure chronic ulcer of other part of right lower leg with fat layer exposed (principal); I95.9 Hypotension, unspecified; F17.200 Nicotine dependence, unspecified, uncomplicated; K70.31 Alcoholic cirrhosis of liver with ascites; D64.9 Anemia, unspecified; Z85.3 Personal history of malignant neoplasm of breast | CPT/HCPCS: 11042; 11045; A9270 ==

== ENCOUNTER → 2025-04-15 | Outpatient (CLI) | payer MEDICAID, SELFPAY | END | disposition home or self-care (01) | PROVIDERS: PCP Physician Assistant; Referring Provider Physician Assistant; Visit Provider Student in an Organized Health Care Education/Training Program | DX: L97.812 Non-pressure chronic ulcer of other part of right lower leg with fat layer exposed (principal); F17.200 Nicotine dependence, unspecified, uncomplicated; K70.31 Alcoholic cirrhosis of liver with ascites; D64.9 Anemia, unspecified; Z85.3 Personal history of malignant neoplasm of breast | CPT/HCPCS: 11042; 11045; A9270 ==

== ENCOUNTER → 2025-04-22 | Outpatient (CLI) | payer MEDICAID, SELFPAY | END | disposition home or self-care (01) | LOC: SWHD 10:18 | PROVIDERS: PCP Physician Assistant; Referring Provider Physician Assistant; Visit Provider Student in an Organized Health Care Education/Training Program | DX: L97.812 Non-pressure chronic ulcer of other part of right lower leg with fat layer exposed (principal); F17.200 Nicotine dependence, unspecified, uncomplicated; K70.31 Alcoholic cirrhosis of liver with ascites; D64.9 Anemia, unspecified; Z85.3 Personal history of malignant neoplasm of breast | CPT/HCPCS: 11042; 11045; A9270 ==

== ENCOUNTER 2025-04-28 10:09 | Outpatient (RCR) | payer MEDICAID, SELFPAY | END 2025-04-28 23:59 | disposition home or self-care (01) | LOC: SCTC 10:09 | PROVIDERS: PCP Physician Assistant; Referring Provider Physician Assistant; Visit Provider Nurse Practitioner Family | DX: D64.9 Anemia, unspecified (principal); K70.30 Alcoholic cirrhosis of liver without ascites; Z85.3 Personal history of malignant neoplasm of breast; Z90.12 Acquired absence of left breast and nipple; Z92.21 Personal history of antineoplastic chemotherapy; Z92.3 Personal history of irradiation; K64.9 Unspecified hemorrhoids; F17.200 Nicotine dependence, unspecified, uncomplicated; R60.0 Localized edema | CPT/HCPCS: 99212; G0463 ==

== ENCOUNTER → 2025-05-01 | Outpatient (CLI) | payer OTHER, SELFPAY | END | disposition home or self-care (01) | PROVIDERS: PCP Physician Assistant; Referring Provider Physician Assistant; Visit Provider Student in an Organized Health Care Education/Training Program | DX: L97.812 Non-pressure chronic ulcer of other part of right lower leg with fat layer exposed (principal); F17.200 Nicotine dependence, unspecified, uncomplicated; K70.31 Alcoholic cirrhosis of liver with ascites; D64.9 Anemia, unspecified; Z85.3 Personal history of malignant neoplasm of breast | CPT/HCPCS: 11042; 11045; A9270 ==

== ENCOUNTER 2025-05-02 09:34 | Emergency (ER) | payer OTHER, MEDICAID, SELFPAY ==
[2025-05-02 09:35] VITALS: BMI 43.2
[2025-05-02 09:50] VITALS: BP 109/58; PULSE 86; RESP 18; TEMP 36.9; O2SAT 97; BMI 43.0
--- NOTE | 2025-05-02 10:04 | PD.EDRME ---
Rapid Medical Screening Exam RME Arrival date/time: This is a 49-year-old female that comes into the emergency room with complaints of weakness. Patient was seen by oncology and was told recently that she had a low hemoglobin and needs blood transfusion. Patient reports she is feeling tired patient denies fever or chills. Patient has a history of liver cirrhosis. Patient states that she had breast cancer and is currently in remission. Patient is currently having home health take care of the wound to her right lower extremity. Patient also has bilateral leg swelling. Patient states she was recently seen at [facility] and was discharged home. Patient states that she does have a little bit of a runny nose recently. Chief Complaint: Nausea/Vomiting/Diarrhea Time Seen by Provider: 05/02/25 09:36 Vital signs: Vital Signs Temperature 98.5 F 05/02/25 09:50 Pulse Rate 86 05/02/25 09:50 Respiratory Rate 18 05/02/25 09:50 Blood Pressure 109/58 L 05/02/25 09:50 Pulse Oximetry (%) 97 05/02/25 09:50 Oxygen Delivery Method Room Air 05/02/25 09:50
[2025-05-02 10:41] LABS: Basophils # (Auto) 0.0 Thou/mm3 (0.0-0.2); Basophils % (Auto) 1 % (0-2.5); Eosinophils # (Auto) 0.4 Thou/mm3 (0.0-0.5); Eosinophils % (Auto) 6 % (0-10); Hematocrit 25.3 % (36.0-46.0); Immature Granulocytes Auto 0.04 Thou/mm3 (0.00-0.00); Lymphocytes # (Auto) 0.9 Thou/mm3 (1.0-4.8); Lymphocytes % (Auto) 14 % (10-50); Mean Corpuscular HGB Conc 31.6 g/dl (31.0-37.0); Mean Corpuscular Hemoglobin 32.8 pg (25.0-35.0); Mean Corpuscular Volume 104 fL (80-100); Monocytes # (Auto) 1.0 Thou/mm3 (0.0-0.8); Monocytes % (Auto) 15 % (0-12); Neutrophils # (Auto) 4.4 Thou/mm3 (1.8-7.7); Neutrophils % (Auto) 64 % (37-80); Nucleated Red Blood Cell # 0.00 Thou/mm3 (0.00-0.00); Nucleated Red Blood Cell % 0 /100 WBC (0); Platelet Count 92 Thou/mm3 (140-440); RDW Standard Deviation 60.3 fL (36.4-46.3); Red Blood Count 2.44 Miln/mm3 (4.00-5.20); White Blood Count 6.8 Thou/mm3 (3.6-11.0)
[2025-05-02 10:44] LABS: Hemoglobin 8.0 g/dL (12.0-16.0)
[2025-05-02 10:51] LABS: INR 1.3 (0.9-1.3); Prothrombin Time 13.5 Seconds (9.0-12.2)
[2025-05-02 10:58] LABS: Alanine Aminotransferase 12 U/L (10-49); Albumin, Serum 3.8 gm/dL (3.5-5.0); Albumin/Globulin Ratio 1.6 (1.2-2.2); Alkaline Phosphatase 128 U/L (46-116); Anion Gap 10 (7-16); Aspartate Amino Transferase 25 U/L (0-34); BUN/Creatinine Ratio 11 Ratio (12-20); Bilirubin,Total 8.4 mg/dL (0.3-1.2); Blood Urea Nitrogen 9 mg/dL (9-23); Calcium 9.7 mg/dL (8.3-10.6); Calcium (Corrected) 9.9 mg/dL (8.5-10.1); Carbon Dioxide 22.5 mMol/L (20.0-31.0); Chloride 110 mMol/L (98-107); Creatinine (Component) 0.8 mg/dL (0.6-1.3); Estimated Creatinine Clearance 77.7 mL/min (>60); Globulin 2.4 gm/dL (2.3-3.5); Glucose 105 mg/dL (74-106); Osmolality,Calculated 281 (275-295); Potassium 4.3 mMol/L (3.4-5.1); Sodium 142 mMol/L (136-145); Total Protein 6.2 gm/dL (5.7-8.2); eGFR > 60 See Note
[2025-05-02 11:52] VITALS: BP 108/50; PULSE 82; RESP 19; TEMP 37.1; O2SAT 100
--- NOTE | 2025-05-02 12:00 | PD.EDADULT ---
ED General RME/HPI General Chief complaint: Nausea/Vomiting/Diarrhea Stated complaint: NAUSEA & DIZZY X3 DAYS Time Seen by Provider: 05/02/25 09:36 Arrival date/time: 05/02/25 09:34 RME / HPI RME / HPI narrative: 49-year-old female that comes into the emergency room with complaints of weakness. Patient was seen by oncology and was told recently that she had a low hemoglobin and needs blood transfusion. Patient reports she is feeling tired patient denies fever or chills. Patient has a history of liver cirrhosis. Patient states that she had breast cancer and is currently in remission. Patient is currently having home health take care of the wound to her right lower extremity. Patient also has bilateral leg swelling. Patient states she was recently seen at [facility] and was discharged home. Patient states that she does have a little bit of a runny nose recently. Patient denies any blood in the stool denies any vomiting blood she had an appointment with liver specialist for her chronic liver cirrhosis. She was told before that she had chronic elevation of total bili, she had 2 MRCP done this year and they are all came back with liver cirrhosis otherwise no choledocholithiasis. Related Data Previous Rx's ?Medication ?Instructions ?Recorded hydrocodone 10 mg-acetaminophen 1 tab PO Q6H PRN pain #20 tabs 01/12/20 325 mg tablet ([place]) famotidine 40 mg tablet (Pepcid) 40 mg PO BID #14 tabs 09/20/23 ferrous sulfate 324 mg (65 mg 324 mg PO BID #60 tabs 05/02/25 iron) tablet,delayed release pantoprazole 40 mg tablet,delayed 40 mg PO QDAY #30 tabs 05/02/25 release (Protonix) Allergies Allergy/AdvReac Type Severity Reaction Status Date / Time sulfamethoxazole (From Allergy Severe Rash Verified 05/02/25 09:39 Bactrim) trimethoprim (From Bactrim) Allergy Severe Rash Verified 05/02/25 09:39 Review of Systems Review of Systems Narrative Review of Systems: Review of system reviewed and within normal limits except mentioned in HPI ED Exam Narrative Physical exam: VITAL SIGNS: Reviewed. GENERAL APPEARANCE: Alert and interactive, follows commands, no acute distress, HEAD AND FACE: Non-traumatic. ENT: PERRL, icteric sclera, pink conjunctivitis, eyelid no trauma, Mucous membrane moist. NECK: Supple, nontender, no nuchal rigidity. CHEST: No tenderness, no crepitus, no paradoxical movement, no retractions. LUNGS: Clear, well ventilated, symmetric, no rales, no wheezing, no ronchi, no stridor, good breath sounds bilaterally. HEART: Regular rate, regular rhythm, no murmur, no gallops. ABDOMEN: Soft, positive bowel sounds, nondistended, no guarding, nontender, no rebound, no masses, RECTAL: Deferred. GENITAL: Deferred. NEUROLOGICAL: Gross motor function intact sensory function intact, Appropriate for age. MUSCULOSKELETAL: low back nontender, full range of motion. EXTREMITIES: Nontender, full range of motion. SKIN: Color pink, dry, no rash, no lacerations, no abrasions, no contusions. LYMPHATICS: Deferred. Course Quality Measures none Orders Category Date Time Status Occult Blood,Stool (Nursing) NOW Care 05/02/25 12:11 Active CBC Stat Lab 05/02/25 10:24 Completed Comprehensive Metabolic Panel Stat Lab 05/02/25 10:24 Completed Occult Blood, Stool (LAB) Stat Lab 05/02/25 12:12 Completed PT [Prothrombin Time with INR] Stat Lab 05/02/25 10:24 Completed Type and Screen Stat Lab 05/02/25 10:24 Completed Urinalysis, C/S if Indicated Stat Lab 05/02/25 11:43 Completed Vital Signs Vital signs: Vital Signs Temperature 98.5 F 05/02/25 09:50 Pulse Rate 86 05/02/25 09:50 Respiratory Rate 18 05/02/25 09:50 Blood Pressure 109/58 L 05/02/25 09:50 Pulse Oximetry (%) 97 05/02/25 09:50 Oxygen Delivery Method Room Air 05/02/25 09:50 Discharge Plan Plan Patient Disposition: HOME (Self Care) Discharge Disposition comment: Stable Prescriptions/Referrals Prescriptions/Med Rec: New pantoprazole [Protonix] 40 mg tablet,delayed release (DR/EC) 40 mg PO QDAY Qty: 30 0RF ferrous sulfate 324 mg (65 mg iron) tablet,delayed release (DR/EC) 324 mg PO BID Qty: 60 0RF No Action hydrocodone-acetaminophen [[place]] 10-325 mg tablet 1 tab PO Q6H MDD 3 PRN (Reason: pain) Qty: 20 0RF famotidine [Pepcid] 40 mg tablet 40 mg PO BID Qty: 14 0RF Referrals: Elena Aguila PA-C [Primary Care Provider, Family Practice] - In 1 week Problem List Clinical Impression: Anemia, Cirrhosis of liver, Serum total bilirubin elevated Patient/Caregiver Discharge Instructions Discharge Activity: activity as tolerated Education Materials: Anemia Additional Instructions: Thank you for the opportunity for serving you today. You are stable for discharged . You are advised to: Follow-up with your PCP in 1 to 2 days Return to ED for worsening of symptoms Increase oral fluids Take medication as prescribed Follow-up with your liver specialist follow-up next week. Your hemoglobin today was noted to be 8.0, you do not need emergency blood transfusion. However I prescribed you ferrous sulfate. Your total bilirubin today is elevated, however I noticed your total bili is been elevated before also. Secondary to your liver cirrhosis. I wanted to discuss this with your liver specialist appointment soon. Print Language: Nepali Stand Alone Forms: Zunilda Award Info., Patient Portal Info Letter FEMI/REINA Supervising Physician LILLIAM Supervising Physician: MD Cassandra MDM Narrative MDM hospital course (for use when minimal MDM required): 49-year-old female that comes into the emergency room with complaints of weakness. Patient was seen by oncology and was told recently that she had a low hemoglobin and needs blood transfusion. Patient reports she is feeling tired patient denies fever or chills. Patient has a history of liver cirrhosis. Patient states that she had breast cancer and is currently in remission. Patient is currently having home health take care of the wound to her right lower extremity. Patient also has bilateral leg swelling. Patient states she was recently seen at [facility] and was discharged home. Patient states that she does have a little bit of a runny nose recently. Patient denies any blood in the stool denies any vomiting blood she had an appointment with liver specialist for her chronic liver cirrhosis. She was told before that she had chronic elevation of total bili, she had 2 MRCP done this year and they are all came back with liver cirrhosis otherwise no choledocholithiasis. Rectal exam was done by me with a female nurse Dawna all around all the time, no blood noted on the examining finger, tested negative for occult blood Patient's hemoglobin today was noted to be 8.0, hematocrit of 55.3, platelet of 92. Currently patient is not having any active bleeding. Rectal exam is benign. Patient total bili was also noted to be 8.4 which is chronically elevated, 1 time it went all the way up to 18, MRI of the abdomen x 2 done for the last several months all came back with no choledocholithiasis or obstruction in the common bile duct. Patient's elevated total bili secondary to liver cirrhosis. Patient is scheduled to see her liver specialist next week. She is stable for discharge home
[2025-05-02 12:02] LABS: Collection Type, Urine Voided
[2025-05-02 12:13] LABS: Bilirubin,Urine Negative (Negative); Blood,Urine Negative (Negative); Clarity,Urine Clear (Clear/Hazy); Color,Urine Lt-Yellow (Lt Yel-Yel); Culture Indicated,Urine Not Indicated; Glucose, Urine Negative (Negative); Hyaline Casts,Urine < 1 /hpf (0-1); Ketones,Urine Negative (Negative); Leukocyte Esterase,Urine Negative (Negative); Nitrite,Urine Negative (Negative); PH,Urine 6.5 (5.0-7.0); Protein,Urine Negative (Neg - Trace); RBC,Urine 1 /hpf (0-3); Specific Gravity,Urine 1.007 (1.001-1.035); Squamous Epithelial Cell,Urine 2 /hpf (0-5); Urobilinogen,Urine Negative mg/dL (0.0-1.0); WBC,Urine 1 /hpf (0-5)
--- NOTE | 2025-05-02 12:20 | PC.NURSE ---
Patient to er with c/o weakness and dizziness that has progressively gotten worse x 3 days, patient has h/o cirrhosis and left breast cancer in 2017. Patient states she has had to have blood transfusion for low h/h. Caprice at bedside performed stool for occult blood which is negative, Patient denies any bleeding from anywhere.
[2025-05-02 12:37] LABS: OBS Card Lot # 0124; OBS Developer Lot # 0424; OBS Performed By vasqk2; OBS QC OK? Yes; Occult Blood, Stool Negative (Negative)
[2025-05-02 13:36] VITALS: BP 106/45; PULSE 80; RESP 16; TEMP 36.7; O2SAT 96
== END 2025-05-02 13:37 | disposition home or self-care (01) ==
PROVIDERS: Nurse Practitioner Family; Emergency Provider Emergency Medicine; PCP Physician Assistant
DX: D64.9 Anemia, unspecified (principal); K74.60 Unspecified cirrhosis of liver; Z85.3 Personal history of malignant neoplasm of breast
CPT/HCPCS: 36415; 80053; 81001; 82270; 85025; 85610; 86850; 86900; 86901; 99283

== ENCOUNTER → 2025-05-06 | Outpatient (CLI) | payer MEDICAID, SELFPAY ==
--- NOTE | 2025-05-06 14:00 | XR_ITS ---
Examination: Bone densitometry Date and time of exam: May 06, 2025, 1410 hours INDICATIONS: Menopause age 41 left breast carcinoma diagnosis smoking history Technique: Lumbar spine and hip total bone mineralization values of an calculated. Peak reference and age match control results have been displayed. Findings: Lumbar spine total bone mineralization is 0.833 gm/cm2. This is 1.9 standard deviations below peak reference. This is 1.1 standard deviations below age-matched controls. Hip total bone mineralization is 0.760 gm/cm2 This is 1.5 standard deviations below peak reference. This is 1.0 standard deviations above age-matched controls Impression: There is osteopenia based on lumbar spine measurements. There is osteoporosis based on hip measurements
== END | disposition home or self-care (01) ==
PROVIDERS: PCP Nurse Practitioner Family; Referring Provider Nurse Practitioner Family; Visit Provider Nurse Practitioner Family
DX: C50.412 Malignant neoplasm of upper-outer quadrant of left female breast (principal); M81.0 Age-related osteoporosis without current pathological fracture; M85.88 Other specified disorders of bone density and structure, other site
CPT/HCPCS: 77080

== ENCOUNTER → 2025-05-06 | Outpatient (CLI) | payer OTHER, SELFPAY | END | disposition home or self-care (01) | PROVIDERS: PCP Physician Assistant; Referring Provider Physician Assistant; Visit Provider Student in an Organized Health Care Education/Training Program | DX: L97.812 Non-pressure chronic ulcer of other part of right lower leg with fat layer exposed (principal); F17.200 Nicotine dependence, unspecified, uncomplicated; K70.31 Alcoholic cirrhosis of liver with ascites; D64.9 Anemia, unspecified; Z85.3 Personal history of malignant neoplasm of breast | CPT/HCPCS: 11042; 11045; A9270 ==

== ENCOUNTER → 2025-05-14 | Outpatient (CLI) | payer MEDICAID, SELFPAY | END | disposition home or self-care (01) | LOC: SWHD 09:01 | PROVIDERS: PCP Physician Assistant; Referring Provider Physician Assistant; Visit Provider Student in an Organized Health Care Education/Training Program | DX: L97.812 Non-pressure chronic ulcer of other part of right lower leg with fat layer exposed (principal); F17.200 Nicotine dependence, unspecified, uncomplicated; K70.31 Alcoholic cirrhosis of liver with ascites; D64.9 Anemia, unspecified; Z85.3 Personal history of malignant neoplasm of breast | CPT/HCPCS: 11042; 11045; A9270 ==

== ENCOUNTER → 2025-05-19 | Outpatient (CLI) | payer MEDICAID, SELFPAY ==
--- NOTE | 2025-05-19 08:00 | XR_ITS ---
EXAMINATION: PET/CT FUSION SKULL TO THIGH EXAM DATE AND TIME: May 19, 2025, 0926 hours, comparison MRI abdomen October 30, 2024, CT abdomen pelvis August 07, 2024, CT chest July 26, 2023 INDICATIONS: Diagnosis breast cancer, restaging post treatment PROCEDURE: 15.6 mCi FDG was administered intravenously To allow for distribution and uptake of radiotracer, the patient was allowed to rest quietly in a shielded room. Imaging was performed on an integrated 16-slice PET/CT scanner, with scanning from the skull base to the mid thigh. CT scanning was performed without oral or intravenous contrast material. FINDINGS: Head and Neck: There is no jose maria hypermetabolism in the neck. The visualized portions of the brain are normal in appearance on CT. Chest: Atelectasis right lower lobe and left lower lobe with minimal right pleural disease Abdomen and Pelvis: Liver irregular in contour Absent gallbladder Musculoskeletal: Hypermetabolic activity about a right eighth rib fracture, posterolaterally, axial image 98 IMPRESSION: Hypermetabolic activity about the right eighth rib fracture, consider plain films right rib series follow-up No interval metastatic disease in the abdomen or pelvis
== END | disposition home or self-care (01) ==
PROVIDERS: Referring Provider Nurse Practitioner Family; Visit Provider Nurse Practitioner Family
DX: S22.31XA Fracture of one rib, right side, initial encounter for closed fracture (principal); X58.XXXA Exposure to other specified factors, initial encounter; C50.412 Malignant neoplasm of upper-outer quadrant of left female breast
CPT/HCPCS: 78815; A9552

== ENCOUNTER → 2025-05-20 | Outpatient (CLI) | payer OTHER, SELFPAY | END | disposition home or self-care (01) | LOC: SWHD 09:20 | PROVIDERS: PCP Physician Assistant; Referring Provider Physician Assistant; Visit Provider Student in an Organized Health Care Education/Training Program | DX: L97.812 Non-pressure chronic ulcer of other part of right lower leg with fat layer exposed (principal); F17.200 Nicotine dependence, unspecified, uncomplicated; K70.31 Alcoholic cirrhosis of liver with ascites; D64.9 Anemia, unspecified; Z85.3 Personal history of malignant neoplasm of breast | CPT/HCPCS: 11042; A9270 ==

== ENCOUNTER 2025-05-26 11:13 | Outpatient (RCR) | payer MEDICAID, SELFPAY | END 2025-05-29 23:59 | disposition home or self-care (01) | LOC: SCTC 11:13 | PROVIDERS: PCP Physician Assistant; Referring Provider Physician Assistant; Visit Provider Nurse Practitioner Family | DX: C50.412 Malignant neoplasm of upper-outer quadrant of left female breast (principal); Z17.421 Hormone receptor negative with human epidermal growth factor receptor 2 negative status; Z90.12 Acquired absence of left breast and nipple; K70.30 Alcoholic cirrhosis of liver without ascites; R16.1 Splenomegaly, not elsewhere classified; D69.6 Thrombocytopenia, unspecified; D64.9 Anemia, unspecified; F17.200 Nicotine dependence, unspecified, uncomplicated; Z71.6 Tobacco abuse counseling; M81.0 Age-related osteoporosis without current pathological fracture; Z87.19 Personal history of other diseases of the digestive system | CPT/HCPCS: 99212; G0463 ==

== ENCOUNTER → 2025-05-27 | Outpatient (CLI) | payer OTHER, SELFPAY | END | disposition home or self-care (01) | PROVIDERS: PCP Physician Assistant; Referring Provider Physician Assistant; Visit Provider Student in an Organized Health Care Education/Training Program | DX: L97.812 Non-pressure chronic ulcer of other part of right lower leg with fat layer exposed (principal); F17.200 Nicotine dependence, unspecified, uncomplicated; K70.31 Alcoholic cirrhosis of liver with ascites; D64.9 Anemia, unspecified; Z85.3 Personal history of malignant neoplasm of breast | CPT/HCPCS: 11042; A9270 ==

== ENCOUNTER → 2025-06-03 | Outpatient (CLI) | payer OTHER, SELFPAY | END | disposition home or self-care (01) | PROVIDERS: PCP Physician Assistant; Referring Provider Physician Assistant; Visit Provider Student in an Organized Health Care Education/Training Program | DX: L97.812 Non-pressure chronic ulcer of other part of right lower leg with fat layer exposed (principal); F17.200 Nicotine dependence, unspecified, uncomplicated; K70.31 Alcoholic cirrhosis of liver with ascites; D64.9 Anemia, unspecified; Z85.3 Personal history of malignant neoplasm of breast | CPT/HCPCS: 11042; A9270 ==

== ENCOUNTER → 2025-06-04 | Outpatient (CLI) | payer MEDICAID, SELFPAY ==
--- NOTE | 2025-06-04 09:30 | ECHO_ITS ---
Patient Info Name: Alexandria Greenberg Age: 49 years : 1975 Gender: Female Ht: 145 cm Wt: 86 kg BSA: 1.92 m2 BP: 116 / 43 mmHg HR: 81 bpm Exam Date: 06/04/2025 10:08 AM Admit Date: 06/04/2025 Site: [facility] Room Number: echo Patient Status: O Exam Type: CA echo doppler complete Professor Of Social Work: Betty Mccoy Ordering Physician: Elena Aguila Referring Physician: Elena Aguila Study Info Indications Cardiac murmur, unspecified - Primary Location: SDIM Left Ventricular Outflow Tract Name Value Normal LVOT 2D LVOT Diameter 1.9 cm LVOT Doppler LVOT Peak Velocity 222 cm/s LVOT Mean Gradient 11 mmHg LVOT VTI 48 cm LVOT VTI/AV VTI Ratio 0.7 LVOT Stroke Volume 136 ml Pulmonic Valve Name Value Normal PV Doppler PV Peak Velocity 186 cm/s Mitral Valve Name Value Normal MV Doppler MV Decel [place] 1,050 cm/s2 MV PHT 48 ms MV Area (PHT) 4.6 cm2 4.0-5.0 MV Diastolic Function MV E Peak Velocity 174 cm/s MV A Peak Velocity 98 cm/s MV E/A 1.8 MV Annular TDI MV Lateral e' Velocity 9.3 cm/s MV E/e' (Lateral) 18.7 Tricuspid Valve Name Value Normal TV Regurgitation Doppler TR Peak Velocity 339 cm/s Estimated PAP/RSVP RA Pressure 3 mmHg <=5 PA Systolic Pressure 49 mmHg <36 RV Systolic Pressure 49 mmHg <36 TV Annular TDI TV Lateral Tuyet s' Velocity 19.6 cm/s >=9.5 Aortic Valve Name Value Normal AV 2D/MM AV Cusp Sep (MM) 1.1 cm AV Doppler AV Peak Velocity 323 cm/s AV Mean Gradient 21 mmHg AV VTI 71 cm AV Area (Cont Eq VTI) 1.9 cm2 >=3.0 AV Area (Cont Eq Arian) 1.9 cm2 AV DI (Arian) 0.69 AV Regurgitation 2D LVOT Area 2.8 cm2 Ventricles Name Value Normal LV Dimensions 2D/MM IVS Diastolic Thickness (2D) 0.8 cm 0.6-0.9 LVID Diastole (2D) 5.7 cm 3.8-5.2 LVIW Diastolic Thickness (2D) 1.3 cm 0.6-0.9 LVID Systole (2D) 3.2 cm 2.2-3.5 LVOT Diameter 1.9 cm LV Mass (2D Cubed) 241.35 g 67.00-162.00 LV Mass Index (2D Cubed) 126 g/m2 43-95 Relative Wall Thickness (2D) 0.46 <=0.42 IVS/LVIW Diastolic Thickness (2D) 0.62 0.00-1.50 LV Fractional Shortening/Ejection Fraction 2D/MM LV Fractional Shortening (2D) 44 % 27-45 LV EF (2D [place]) 74 % RV Dimensions 2D/MM TV Lateral Tuyet s' Velocity 19.6 cm/s >=9.5 Atria Name Value Normal LA Dimensions LA Volume (4C A-L) 68 ml LA Volume (BP A-L) 73 ml Left Ventricle Left ventricular chamber dimension is normal. Left ventricular systolic function is normal with visually estimated ejection fraction of 60-65%. There is mild concentric hypertrophy noted in the left ventricle. Left ventricular segmental wall motion is normal. There is normal diastolic function in the left ventricle. Right Ventricle Right ventricular chamber dimension is normal. Right ventricular systolic function is normal. Left Atrium Left atrial chamber dimension is mildly enlarged. Right Atrium Right atrial chamber dimension is normal. Aortic Valve The aortic valve is trileaflet. There is mild aortic valve sclerosis. There is mild aortic valve stenosis with a peak velocity of 323 cm/s, mean gradient of 21 mmHg, and aortic valve area of 1.9 cm2. There is no aortic valve regurgitation. Pulmonic Valve The pulmonic valve is normal. There is no pulmonic valve stenosis. There is moderate pulmonic regurgitation. Mitral Valve The mitral valve has thickened leaflets. There is mild to moderate mitral valve stenosis. There is mild mitral valve regurgitation. Tricuspid Valve The tricuspid valve leaflets are normal. There is no tricuspid valve stenosis. There is trace tricuspid valve regurgitation. Pulmonary hypertension, estimated pulmonary arterial systolic pressure is 49 mmHg and systemic blood pressure of 116 mmHg in systole. Pericardium/Pleural The pericardium appears normal. There is trivial pericardial effusion with no tamponade. No pleural effusion visualized. Inferior Vena Cava Normal inferior vena cava with >50% collapse upon inspiration consistent with normal right atrial pressure, 3 mmHg. Aorta The aortic measurements are indexed to age and body surface area. The aortic root at the sinus of Valsalva is not well visualized. The prox ascending aorta is not well visualized. Summary 1. Left ventricle size is normal and systolic function is normal. Estimated ejection fraction is 60-65%. There is normal diastolic function. There is mild concentric hypertrophy noted. 2. Right ventricle chamber size is normal and systolic function is normal. Estimated RVSP is 49 mmHg. 3. There is mild aortic valve sclerosis with mild stenosis and no regurgitation. 4. There is mild to moderate mitral valve stenosis and mild regurgitation. Mild MAC. 5. There is trace tricuspid valve regurgitation. 6. moderate pulmonic valve regurgitation. 7. Normal IVC with estimated RA pressure 3 mmHg. 8. There is trivial pericardial effusion with no tamponade. Report Signatures Finalized by Chelsy Muñoz on 06/04/2025 05:38 PM
== END | disposition home or self-care (01) ==
PROVIDERS: PCP Physician Assistant; Referring Provider Physician Assistant; Visit Provider Physician Assistant
DX: I51.7 Cardiomegaly (principal); I35.8 Other nonrheumatic aortic valve disorders; I05.0 Rheumatic mitral stenosis; I08.1 Rheumatic disorders of both mitral and tricuspid valves; I31.39 Other pericardial effusion (noninflammatory)
CPT/HCPCS: 93306

== ENCOUNTER → 2025-06-08 | Outpatient (CLI) | payer MEDICAID, SELFPAY ==
--- NOTE | 2025-06-08 08:50 | XR_ITS ---
Examination: Ribs, bilateral, with PA chest, 5 views Technique: Chest PA, RIBS AP, RPO, LPO, AP coned lower ribs 5 views Exam date and time: June 08, 2025, 0910 hours INDICATIONS: Patient felt a pop in the ribs followed by rib pain today Findings: Mild enlargement cardiac contour Prominent vascular congestion. Early perihilar edema Prominent osteopenia No pneumothorax Acute displaced fracture right eighth rib posterolaterally IMPRESSION: Mild heart failure Acute displaced fracture right eighth rib posterolaterally
== END | disposition home or self-care (01) ==
LOC: CDIM 08:41
PROVIDERS: PCP Physician Assistant; Referring Provider Nurse Practitioner Family; Visit Provider Nurse Practitioner Family
DX: I50.9 Heart failure, unspecified (principal); S22.31XA Fracture of one rib, right side, initial encounter for closed fracture; W19.XXXA Unspecified fall, initial encounter; C50.412 Malignant neoplasm of upper-outer quadrant of left female breast
CPT/HCPCS: 71111

== ENCOUNTER 2025-06-10 07:58 | Outpatient (RCR) | payer MEDICAID, SELFPAY | END 2025-06-28 23:59 | disposition home or self-care (01) | LOC: SCTC 07:58 | PROVIDERS: PCP Physician Assistant; Referring Provider Physician Assistant; Visit Provider Nurse Practitioner Family | DX: C50.412 Malignant neoplasm of upper-outer quadrant of left female breast (principal); Z17.421 Hormone receptor negative with human epidermal growth factor receptor 2 negative status; Z90.12 Acquired absence of left breast and nipple; K70.30 Alcoholic cirrhosis of liver without ascites; R16.1 Splenomegaly, not elsewhere classified; D69.6 Thrombocytopenia, unspecified; D64.9 Anemia, unspecified; R60.0 Localized edema; F17.210 Nicotine dependence, cigarettes, uncomplicated; Z71.6 Tobacco abuse counseling; M81.0 Age-related osteoporosis without current pathological fracture; K64.9 Unspecified hemorrhoids; L98.8 Other specified disorders of the skin and subcutaneous tissue | CPT/HCPCS: 36415; 99212; G0463 ==

== ENCOUNTER → 2025-06-10 | Outpatient (CLI) | payer OTHER, SELFPAY | END | disposition home or self-care (01) | LOC: SWHD 10:05 | PROVIDERS: PCP Physician Assistant; Referring Provider Physician Assistant; Visit Provider Student in an Organized Health Care Education/Training Program | DX: L97.812 Non-pressure chronic ulcer of other part of right lower leg with fat layer exposed (principal); F17.200 Nicotine dependence, unspecified, uncomplicated; K70.31 Alcoholic cirrhosis of liver with ascites; D64.9 Anemia, unspecified; Z85.3 Personal history of malignant neoplasm of breast | CPT/HCPCS: 11042; A9270 ==

== ENCOUNTER → 2025-06-17 | Outpatient (CLI) | payer OTHER, SELFPAY | END | disposition home or self-care (01) | LOC: SWHD 10:39 | PROVIDERS: PCP Physician Assistant; Referring Provider Physician Assistant; Visit Provider Student in an Organized Health Care Education/Training Program | DX: L97.812 Non-pressure chronic ulcer of other part of right lower leg with fat layer exposed (principal); F17.200 Nicotine dependence, unspecified, uncomplicated; K70.31 Alcoholic cirrhosis of liver with ascites; D64.9 Anemia, unspecified; Z85.3 Personal history of malignant neoplasm of breast | CPT/HCPCS: 11042; A9270 ==

== ENCOUNTER → 2025-06-24 | Outpatient (CLI) | payer OTHER, SELFPAY | END | disposition home or self-care (01) | LOC: SWHD 10:47 | PROVIDERS: PCP Physician Assistant; Referring Provider Physician Assistant; Visit Provider Student in an Organized Health Care Education/Training Program | DX: L97.812 Non-pressure chronic ulcer of other part of right lower leg with fat layer exposed (principal); F17.200 Nicotine dependence, unspecified, uncomplicated; K70.31 Alcoholic cirrhosis of liver with ascites; D64.9 Anemia, unspecified; Z85.3 Personal history of malignant neoplasm of breast | CPT/HCPCS: 11042; A9270 ==

== ENCOUNTER → 2025-07-01 | Outpatient (CLI) | payer OTHER, SELFPAY | END | disposition home or self-care (01) | LOC: SWHD 13:27 | PROVIDERS: PCP Physician Assistant; Referring Provider Physician Assistant; Visit Provider Student in an Organized Health Care Education/Training Program | DX: L97.812 Non-pressure chronic ulcer of other part of right lower leg with fat layer exposed (principal); F17.200 Nicotine dependence, unspecified, uncomplicated; K70.31 Alcoholic cirrhosis of liver with ascites; D64.9 Anemia, unspecified; Z85.3 Personal history of malignant neoplasm of breast | CPT/HCPCS: 11042; A9270 ==

== ENCOUNTER → 2025-07-08 | Outpatient (CLI) | payer OTHER, SELFPAY | END | disposition home or self-care (01) | LOC: SWHD 09:33 | PROVIDERS: PCP Physician Assistant; Referring Provider Physician Assistant; Visit Provider Student in an Organized Health Care Education/Training Program | DX: L97.812 Non-pressure chronic ulcer of other part of right lower leg with fat layer exposed (principal); F17.200 Nicotine dependence, unspecified, uncomplicated; K70.31 Alcoholic cirrhosis of liver with ascites; D64.9 Anemia, unspecified; Z85.3 Personal history of malignant neoplasm of breast | CPT/HCPCS: 11042; A9270 ==

== ENCOUNTER → 2025-07-15 | Outpatient (CLI) | payer OTHER, SELFPAY | END | disposition home or self-care (01) | LOC: SWHD 10:24 | PROVIDERS: PCP Physician Assistant; Referring Provider Physician Assistant; Visit Provider Student in an Organized Health Care Education/Training Program | DX: L97.812 Non-pressure chronic ulcer of other part of right lower leg with fat layer exposed (principal); F17.200 Nicotine dependence, unspecified, uncomplicated; K70.31 Alcoholic cirrhosis of liver with ascites; D64.9 Anemia, unspecified; Z85.3 Personal history of malignant neoplasm of breast | CPT/HCPCS: 11042; A9270 ==

== ENCOUNTER → 2025-07-28 | Outpatient (CLI) | payer MEDICAID, SELFPAY ==
--- NOTE | 2025-07-28 14:45 | XR_ITS ---
Examination: Screening digital mammography, bilateral Computer aided detection 3-D breast Tomosynthesis, bilateral Date and time of exam: 07/28/2025, 2:18 p.m. Comparisons: 07/25/2024 Indications: Screening Technique: Nonmagnified MLO, CC views of the breasts to been obtained, reconstructed from 3-D Tomosynthesis images. R2 computer aided detection program utilized for evaluation of suspicious masses and/or abnormal calcifications. 3-D Tomosynthesis images obtained. Technologist: Findings: The breasts are heterogeneously dense, which may obscure small masses. Increased breast density bilaterally when compared to prior exam. Increased left breast skin thickening when compared to prior exam. Left-sided postoperative changes. No evidence of abnormal masses or suspicious calcifications. Impression: Increased breast density bilaterally with increased left breast skin thickening in patient with prior history of breast cancer. Recommend bilateral diagnostic bilateral and whole breast ultrasound. BI-RADS category 0: Incomplete assassment; need additional imaging evaluation
== END | disposition home or self-care (01) ==
LOC: CDIM 14:08
PROVIDERS: PCP Physician Assistant; Referring Provider Nurse Practitioner Family; Visit Provider Nurse Practitioner Family
DX: Z12.31 Encounter for screening mammogram for malignant neoplasm of breast (principal); R92.8 Other abnormal and inconclusive findings on diagnostic imaging of breast; C50.412 Malignant neoplasm of upper-outer quadrant of left female breast
CPT/HCPCS: 77063; 77067

== ENCOUNTER → 2025-07-29 | Outpatient (CLI) | payer MEDICAID, SELFPAY | END | disposition home or self-care (01) | LOC: SWHD 09:52 | PROVIDERS: PCP Physician Assistant; Referring Provider Physician Assistant; Visit Provider Student in an Organized Health Care Education/Training Program | DX: L97.812 Non-pressure chronic ulcer of other part of right lower leg with fat layer exposed (principal); F17.200 Nicotine dependence, unspecified, uncomplicated; K70.31 Alcoholic cirrhosis of liver with ascites; D64.9 Anemia, unspecified; Z85.3 Personal history of malignant neoplasm of breast | CPT/HCPCS: 11042; A9270 ==